=== PATIENT | female | born 1970 | race Caucasian/White ===

== ENCOUNTER → 2017-09-23 | Outpatient (CLI) | payer BC ==
--- NOTE | 2017-09-23 14:04 | US ---
EXAMINATION TYPE: US abdomen complete DATE OF EXAM: 09/23/2017 COMPARISON: NONE CLINICAL HISTORY: R10.32 Abd Pain, Lt side. Pt states ABD pain, more on left near umbilicus EXAM MEASUREMENTS: Liver Length: 12.7 cm Gallbladder Wall: 0.3 cm CBD: 0.5 cm Spleen: 8.8 cm Right Kidney: 9.3 x 4.0 x 4.2 cm Left Kidney: 10.1 x 5.0 x 4.3 cm Pancreas: wnl Liver: Cyst right inferior lobe= 1.0 x 0.4 x 0.8 cm, cyst right anterior lobe= 1.5 x 0.9 x 1.6 cm an d cyst right medial lobe= 1.7 x 1.0 x 1.7 cm Gallbladder: wnl Evidence for sonographic Mccoy's sign: No CBD: wnl Spleen: wnl Right Kidney: wnl, lower pole gassed out Left Kidney: wnl Upper IVC: wnl Abd Aorta: wnl The liver is homogenous. Hepatic cysts as discussed above. The intrahepatic portion of the IVC and pr oximal abdominal aorta are within normal limits. There is no evidence of cholelithiasis. Common sydnee e duct is unremarkable. The visualized portions of the pancreas are homogenous. The spleen is unrem arkable. Kidneys are symmetric and free of hydronephrosis. No renal lesions are seen. IMPRESSION: 1. Hepatic cysts.
== END | disposition home or self-care (01) ==
LOC: RADUSWWP 09:31
PROVIDERS: ATTEND Family Medicine
DX: K76.89 Other specified diseases of liver (principal)
CPT/HCPCS: 76700

== ENCOUNTER → 2017-10-01 | Outpatient (CLI) | payer BC ==
--- NOTE | 2017-10-02 12:04 | MM ---
Reason for exam: screening (asymptomatic). Last mammogram was performed 1 year and 1 month ago. History: Patient is nulliparous. Family history of premenopausal breast cancer in maternal aunt at age 60. Took hormonal contraceptives for 9 years 2 months beginning at age 22. Physical Findings: A clinical breast exam by your physician is recommended on an annual basis and results should be correlated with mammographic findings. MG Screening Mammo w CAD Bilateral CC and MLO view(s) were taken. Prior study comparison: August 31, 2016, bilateral MG screening mammo w CAD. August 03, 2015, bilateral MG screening mammo w CAD. The breast tissue is heterogeneously dense. This may lower the sensitivity of mammography. There is no discrete abnormality. ASSESSMENT: Negative, BI-RAD 1 RECOMMENDATION: Routine screening mammogram of both breasts in 1 year.
== END | disposition home or self-care (01) ==
LOC: RADMAMWWP 16:51
PROVIDERS: ATTEND Obstetrics & Gynecology
DX: Z12.31 Encounter for screening mammogram for malignant neoplasm of breast (principal)

== ENCOUNTER → 2018-09-26 | Outpatient (CLI) | payer BC ==
--- NOTE | 2018-09-30 09:34 | MM ---
Reason for exam: screening (asymptomatic). Last mammogram was performed 1 year ago. History: Patient is nulliparous. Family history of premenopausal breast cancer in maternal aunt at age 60. Took hormonal contraceptives for 9 years 2 months beginning at age 22. Physical Findings: A clinical breast exam by your physician is recommended on an annual basis and results should be correlated with mammographic findings. MG 3D Screening Mammo W/Cad Bilateral CC and MLO view(s) were taken. Prior study comparison: October 01, 2017, bilateral MG screening mammo w CAD. August 31, 2016, bilateral MG screening mammo w CAD. There are scattered fibroglandular densities. No significant changes when compared with prior studies. ASSESSMENT: Negative, BI-RAD 1 RECOMMENDATION: Routine screening mammogram of both breasts in 1 year.
== END | disposition home or self-care (01) ==
LOC: RADMAMWWP 11:21
PROVIDERS: ATTEND Family Medicine
DX: Z12.31 Encounter for screening mammogram for malignant neoplasm of breast (principal)
CPT/HCPCS: 77063; 77067

== ENCOUNTER 2019-09-04 09:05 | Day surgery (SDC) | payer BC ==
[2019-09-02 09:39] VITALS: BMI 21.9
[2019-09-04 09:26] VITALS: TEMP 97
[2019-09-04] MEDS: LACTATED RINGERS 1,000 ML IV SCH ×2 (09:35→09:36)
[2019-09-04] MEDS ORDERED: PROPOFOL 10 MG/ML 20 ML VIAL IV ONE ×2 (09:37→10:21)
--- NOTE | 2019-09-04 09:39 | P.GSHP ---
History of Present Illness H&P Date: 09/04/19 Chief Complaint: Colon cancer screening 49-year-old female here today for colonoscopy. She has not had one previously. No bowel complaints no family history of colon cancer Past Medical History Past Medical History: No Reported History History of Any Multi-Drug Resistant Organisms: None Reported Past Surgical History: Orthopedic Surgery Additional Past Surgical History / Comment(s): sydnee. bunionectomy Past Anesthesia/Blood Transfusion Reactions: No Reported Reaction Smoking Status: Never smoker - Past Family History Mother Family Medical History: No Reported History Medications and Allergies Home Medications Medication Instructions Recorded Confirmed Type Cholecalciferol [Vitamin D3 (25 1,000 unit PO DAILY 09/02/19 09/04/19 History Mcg = 1000 Iu)] Estrogens, Conjugated Cream 1 applicator VAGINAL DAILY 09/02/19 09/04/19 History [Premarin Cream] Loratadine [Claritin] 10 mg PO HS 09/02/19 09/04/19 History Montelukast [Singulair] 10 mg PO HS 09/02/19 09/04/19 History PARoxetine [Paxil] 20 mg PO HS 09/02/19 09/04/19 History Pregnilone Bioidentical 1 tab PO DAILY 09/02/19 09/04/19 History Testosterone 75 gm TD DAILY 09/02/19 09/04/19 History buPROPion HCL [Wellbutrin SR] 450 mg PO HS 09/02/19 09/04/19 History Allergies Allergy/AdvReac Type Severity Reaction Status Date / Time No Known Allergies Allergy Verified 09/02/19 09:15 Surgical - Exam Vital Signs Temp Pulse Resp BP Pulse Ox 97.0 F L 95 18 107/67 97 09/04/19 09:23 09/04/19 09:23 09/04/19 09:23 09/04/19 09:23 09/04/19 09:23 Physical exam: General: Well-developed, well-nourished HEENT: Normocephalic, sclerae nonicteric Abdomen: Nontender, nondistended Extremities: No edema Neuro: Alert and oriented Assessment and Plan (1) Colon cancer screening Narrative/Plan: Will proceed with colonoscopy at this Current Visit: Yes Status: Acute Code(s): Z12.11 - ENCOUNTER FOR SCREENING FOR MALIGNANT NEOPLASM OF COLON SNOMED Code(s): 224194167
--- NOTE | 2019-09-04 09:57 | P.PCN ---
Date of Procedure: 09/04/19 Procedure(s) Performed: PREOPERATIVE DIAGNOSIS: Colon cancer screening POSTOPERATIVE DIAGNOSIS: Poor prep otherwise normal PROCEDURE: Colonoscopy ANESTHESIA: MAC SURGEON: Parmjit Fatima M.D. SPECIMENS: None ENDOSCOPIC PROCEDURE: The patient was placed on the endoscopy table in the left decubitus position. The Olympus colonoscope was inserted into the anus and passed under direct visualization to the base of the cecum. The appendiceal orifice was visualized. From that point the scope was slowly withdrawn inspecting all surfaces carefully. There were no neoplastic inflammatory or polypoid lesions throughout the cecum, ascending, transverse, descending, sigmoid and rectum. Overall the patient's prep was suboptimal with retained liquid and solid stool seen scattered throughout the colon. Approximately 70% of the mucosal surfaces were well visualized. There was no diverticulosis noted. Digital rectal examination was normal. The patient was taken to the recovery room in stable condition per anesthesia guidelines. RECOMMENDATIONS: Normal exam today. Consider shorter-term follow-up or c ologuard testing given the poor prep.
[2019-09-04 10:02] VITALS: PULSE 86; RESP 12
[2019-09-04] MEDS ORDERED: fentaNYL (PF) 50 MCG/ML 2 ML AMP ONE (10:21)
[2019-09-04] MEDS ORDERED: MIDAZOLAM 2 MG/2 ML VIAL ONE (10:21)
[2019-09-04 10:32] VITALS: BP 120/74
== END 2019-09-04 10:36 | disposition home or self-care (01) ==
LOC: ORWHC2ENDO 09:05
PROVIDERS: ATTEND Surgery
DX: Z12.11 Encounter for screening for malignant neoplasm of colon (principal); Z79.899 Other long term (current) drug therapy; Z79.890 Hormone replacement therapy; J45.909 Unspecified asthma, uncomplicated; F39 Unspecified mood [affective] disorder
CPT/HCPCS: J2704; G0121

== ENCOUNTER → 2019-10-17 | Outpatient (CLI) | payer BC ==
--- NOTE | 2019-10-19 10:02 | MM ---
Reason for exam: screening (asymptomatic). Last mammogram was performed 1 year and 1 month ago. History: Patient is postmenopausal and is nulliparous. Family history of premenopausal breast cancer in maternal aunt at age 60. Took hormonal contraceptives for 9 years 2 months beginning at age 22. Physical Findings: A clinical breast exam by your physician is recommended on an annual basis and results should be correlated with mammographic findings. MG 3D Screening Mammo W/Cad Bilateral CC and MLO view(s) were taken. Prior study comparison: September 26, 2018, bilateral MG 3d screening mammo w/cad. October 01, 2017, bilateral MG screening mammo w CAD. The breast tissue is heterogeneously dense. This may lower the sensitivity of mammography. There is no discrete abnormality. No significant changes when compared with prior studies. ASSESSMENT: Negative, BI-RAD 1 RECOMMENDATION: Routine screening mammogram of both breasts in 1 year.
== END ==
LOC: RADMAMWWP 08:30
PROVIDERS: ATTEND Family Medicine
DX: Z12.31 Encounter for screening mammogram for malignant neoplasm of breast (principal)
CPT/HCPCS: 77063; 77067

== ENCOUNTER → 2021-01-13 | Outpatient (CLI) | payer BC ==
--- NOTE | 2021-01-16 11:37 | MM ---
Reason for exam: screening (asymptomatic). Last mammogram was performed 1 year and 3 months ago. History: Patient is postmenopausal and is nulliparous. Family history of premenopausal breast cancer in maternal aunt at age 60. Took hormonal contraceptives for 9 years 2 months beginning at age 22. Taking estrogen for 2 years. Taking progesterone for 2 years. Physical Findings: A clinical breast exam by your physician is recommended on an annual basis and results should be correlated with mammographic findings. MG 3D Screening Mammo W/Cad Bilateral CC and MLO view(s) were taken. Prior study comparison: October 17, 2019, bilateral MG 3d screening mammo w/cad. September 26, 2018, bilateral MG 3d screening mammo w/cad. The breast tissue is heterogeneously dense. This may lower the sensitivity of mammography. No significant changes when compared with prior studies. ASSESSMENT: Negative, BI-RAD 1 RECOMMENDATION: Routine screening mammogram of both breasts in 1 year.
== END | disposition home or self-care (01) ==
LOC: RADMAMWWP 08:58
PROVIDERS: ATTEND Family Medicine
DX: Z12.31 Encounter for screening mammogram for malignant neoplasm of breast (principal)
CPT/HCPCS: 77063; 77067

== ENCOUNTER → 2022-01-19 | Outpatient (CLI) | payer BC ==
--- NOTE | 2022-01-23 14:42 | MM ---
Reason for exam: screening (asymptomatic). Last mammogram was performed 1 year ago. History: Patient is postmenopausal and is nulliparous. Family history of premenopausal breast cancer in maternal aunt at age 60. Took hormonal contraceptives for 9 years 2 months beginning at age 22. Taking estrogen for 4 years beginning at age 47. Taking progesterone for 4 years beginning at age 47. Taking other hormone for 4 years beginning at age 47. Physical Findings: A clinical breast exam by your physician is recommended on an annual basis and results should be correlated with mammographic findings. MG 3D Screening Mammo W/Cad Bilateral CC, MLO, and XCCL view(s) were taken. Prior study comparison: January 13, 2021, bilateral MG 3d screening mammo w/cad. October 17, 2019, bilateral MG 3d screening mammo w/cad. The breast tissue is heterogeneously dense. This may lower the sensitivity of mammography. There is chronic nodularity in the right breast. There is no discrete abnormality. ASSESSMENT: Benign, BI-RAD 2 RECOMMENDATION: Routine screening mammogram of both breasts in 1 year.
== END | disposition home or self-care (01) ==
LOC: RADMAMWWP 08:09
PROVIDERS: ATTEND Obstetrics & Gynecology
DX: Z12.31 Encounter for screening mammogram for malignant neoplasm of breast (principal); Z80.3 Family history of malignant neoplasm of breast; Z78.0 Asymptomatic menopausal state
CPT/HCPCS: 77063; 77067

== ENCOUNTER 2022-05-05 13:16 | Emergency (ER) | payer BC ==
[2022-05-05 13:43] VITALS: TEMP 98.2
--- NOTE | 2022-05-05 14:50 | XR ---
EXAMINATION TYPE: XR lumbar spine 2 or 3V DATE OF EXAM: 05/05/2022 COMPARISON: NONE HISTORY: Trauma. Pain TECHNIQUE: 3 views FINDINGS: Lumbar vertebrae have normal spacing and alignment. Posterior elements are intact. No compr ession fracture. IMPRESSION: Negative lumbar spine exam.
--- NOTE | 2022-05-05 14:51 | XR ---
EXAMINATION TYPE: XR elbow complete LT DATE OF EXAM: 05/05/2022 COMPARISON: NONE HISTORY: Pain. Trauma TECHNIQUE: 3 views FINDINGS: There is no sign of fracture nor dislocation. Joint spaces are normal. No sign of elbow luis alberto nt effusion. IMPRESSION: Normal left elbow exam.
[2022-05-05 15:23] VITALS: RESP 18
--- NOTE | 2022-05-05 16:17 | CT ---
EXAMINATION TYPE: CT brain cspine wo con DATE OF EXAM: 05/05/2022 COMPARISON: None HISTORY: Fall. Head injury. Pain CT DLP: mGycm Automated exposure control for dose reduction was used. Images of the brain and cervical spine obtained with no contrast. Ventricles have normal size. There is no mass effect nor midline shift. No sign of intracranial hemor rhage. Calvarium is intact. There is normal aeration of the mastoids sinuses. The cervical vertebra have normal spacing and alignment. Posterior elements are intact. Facet joints is intact. The skull base is intact.The prevertebral soft tissues appear normal. IMPRESSION: Normal CT scan of the cervical spine. Normal CT scan of the brain.
--- NOTE | 2022-05-05 16:31 | ED ---
Fall HPI - General Chief Complaint: Fall Stated Complaint: slip & fall, hit head Time Seen by Provider: 05/05/22 14:52 Source: patient Mode of arrival: ambulatory - History of Present Illness Initial Comments: 51 year-old female patient presents to ER today for evaluation after slip and fall on concrete. She was carrying a ladder when she fell. States she struck the back of her head, her left elbow, and low back on the ground. States she hit first with her back. She does report some radiating pain down the legs when she moves certain ways. Denies any lower extremity numbness or tingling. Denies loss of bowel or bladder control. Denies any saddle anesthesia. She is able to move her left arm states the pain is mild. States she did have immediate onset of headache, dizziness, and saw stars when she hit her head. She does not believe she lost consciousness. She denies use of blood thinning medication. She denies any other known injury. Denies taking any medication for her symptoms. - Related Data Home Medications Medication Instructions Recorded Confirmed Cholecalciferol [Vitamin D3 (25 1,000 unit PO DAILY 09/02/19 09/04/19 Mcg = 1000 Iu)] Estrogens, Conjugated Cream 1 applicator VAGINAL DAILY 09/02/19 09/04/19 [Premarin Cream] Loratadine [Claritin] 10 mg PO HS 09/02/19 09/04/19 Montelukast [Singulair] 10 mg PO HS 09/02/19 09/04/19 PARoxetine [Paxil] 20 mg PO HS 09/02/19 09/04/19 Pregnilone Bioidentical 1 tab PO DAILY 09/02/19 09/04/19 Testosterone 75 gm TD DAILY 09/02/19 09/04/19 buPROPion HCL [Wellbutrin SR] 450 mg PO HS 09/02/19 09/04/19 Allergies Allergy/AdvReac Type Severity Reaction Status Date / Time No Known Allergies Allergy Verified 05/05/22 13:42 Review of Systems ROS Statement: Those systems with pertinent positive or pertinent negative responses have been documented in the HPI. ROS Other: All systems not noted in ROS Statement are negative. Past Medical History Past Medical History: No Reported History History of Any Multi-Drug Resistant Organisms: None Reported Past Surgical History: Orthopedic Surgery Additional Past Surgical History / Comment(s): sydnee. bunionectomy Past Anesthesia/Blood Transfusion Reactions: No Reported Reaction Past Psychological History: Anxiety, Depression Smoking Status: Never smoker Past Alcohol Use History: Occasional Past Drug Use History: None Reported - Past Family History Mother Family Medical History: No Reported History General Exam Limitations: no limitations General appearance: alert, in no apparent distress, other (This is a well- developed, well-nourished adult female in no acute distress.) Head exam: Present: other (Contusion noted to the left posterior scalp, no abrasion or laceration noted. Tenderness) Eye exam: Present: normal appearance, PERRL, EOMI. Absent: scleral icterus, conjunctival injection, nystagmus, periorbital swelling ENT exam: Present: normal exam, normal oropharynx, mucous membranes moist Neck exam: Present: normal inspection, tenderness (Lower cervical spinal tenderness), full ROM, other (No bony step-off or deformity noted to for midline palpation of posterior cervical spine). Absent: meningismus, lymphadenopathy Respiratory exam: Present: normal lung sounds bilaterally. Absent: respiratory distress, wheezes, rales, rhonchi, stridor Cardiovascular Exam: Present: regular rate, normal rhythm, normal heart sounds. Absent: systolic murmur, diastolic murmur, rubs, gallop, clicks GI/Abdominal exam: Present: soft, normal bowel sounds. Absent: distended, tenderness, guarding, rebound, rigid Extremities exam: Present: normal inspection, full ROM, tenderness (Left posterior elbow), normal capillary refill, other (Full flexion and extension noted to the left elbow. Mild soft tissue swelling noted to the extensor surface. Radial pulses 2+ and equal bilaterally.). Absent: pedal edema, joint swelling, calf tenderness Back exam: Present: tenderness (Left low back), other (No bony step-off or deformity noted to for midline palpation of the thoracic and lumbar spines. There is a large contusion with soft tissue swelling and ecchymosis noted over the left low back.). Absent: normal inspection, vertebral tenderness Neurological exam: Present: alert, oriented X3, CN II-XII intact, normal gait Expanded Patient oriented to: Present: person, place, time Speech: Present: fluid speech Cranial nerves: EOM's Intact: Normal, Nystagmus: Normal Cerebellar function: Finger to Nose: Normal Motor strength exam: RUE: 5, LUE: 5, RLE: 5, LLE: 5 Eye Response: (4) open spontaneously Motor Response: (6) obeys commands Verbal Response: (5) oriented Jennifer Total: 15 Psychiatric exam: Present: normal affect, normal mood Skin exam: Present: warm, dry, intact, normal color. Absent: rash Course Vital Signs 05/05/22 05/05/22 13:39 15:18 Temperature 98.2 F Pulse Rate 69 88 Respiratory 16 18 Rate Blood Pressure 111/67 118/73 O2 Sat by Pulse 98 98 Oximetry Medical Decision Making - Medical Decision Making 51-year-old female patient presents to the emergency department for evaluation after soap and fall on cement. She did strike her head, left elbow, low back. Physical examination did reveal mild soft tissue swelling to the left elbow, full range of motion is intact, neurovascular status is intact. Contusion noted to the left low back. CT brain and C-spine is negative. She is neurologically intact with no focal deficits. Lumbar spine x-ray is negative, left elbow x-r ays negative. I did discuss findings results with her. Symptoms are consistent with concussion. We did discuss signs or symptoms of worsening neurologic status. She is instructed to follow-up with her primary care physician for recheck in 1-2 days. Return parameters were discussed in detail. She verbalizes understanding and agrees with this plan. My attending is Dr. Loomis. - Radiology Data Radiology results: report reviewed, image reviewed 3 views of the left elbow are obtained. Report was reviewed in its entirety. Impression by Dr. San shows normal left elbow exam. 3 views of the lumbar spine are obtained. Report was reviewed in its entirety. Impression by Dr. San shows negative lumbar spine exam. CT brain and C-spine without contrast was obtained. Report was reviewed in its entirety. Impression by Dr. San shows normal computed tomography scan of the cervical spine. Normal computed tomography scan of the brain. Disposition Clinical Impression: Concussion, Contusion of lower back, Left elbow contusion Disposition: HOME SELF-CARE Condition: Good Instructions (If sedation given, give patient instructions): Concussion (ED), Contusion in Adults (ED) Additional Instructions: Apply ice to the painful areas. Tylenol for pain control. Follow-up through primary care physician for recheck in 1-2 days. Return for any new, worsening, or concerning symptoms. Is patient prescribed a controlled substance at d/c from ED?: No Referrals: Maya New MD [Primary Care Provider] - 1-2 days Time of Disposition: 16:31
[2022-05-05 16:50] VITALS: BP 116/76; PULSE 80
== END 2022-05-05 16:50 | disposition home or self-care (01) ==
LOC: EC 13:16
DX: S30.0XXA Contusion of lower back and pelvis, initial encounter (principal); S50.02XA Contusion of left elbow, initial encounter; W19.XXXA Unspecified fall, initial encounter
CPT/HCPCS: 70450; 72100; 72125; 99284

== ENCOUNTER → 2023-01-25 | Outpatient (CLI) | payer BC ==
--- NOTE | 2023-01-28 14:03 | MM ---
Reason for Exam: Screening (asymptomatic). Last screening mammogram was performed 12 month(s) ago. Patient History: Menarche at age 10. Patient has no children. Postmenopausal. Currently using Estrogen, beginning at age 47 for 4 years. Currently using Progesterone, beginning at age 47 for 4 years. Hormonal Contraceptives, starting at age 22 for 9 years, 2 months. Maternal aunt had breast cancer, age 60. Risk Values: Senait 5 year model risk: 1.3%. NCI Lifetime model risk: 9.3%. Prior Study Comparison: 10/17/2019 Bilateral Screening Mammogram, [facility]. 01/13/2021 Bilateral Screening Mammogram, [facility]. 01/19/2022 Bilateral Screening Mammogram, [facility]. Tissue Density: The breast tissue is heterogeneously dense. This may lower the sensitivity of mammography. Findings: Analyzed By CAD. There is no suspicious group of microcalcifications or new suspicious mass in either breast. Overall Assessment: Negative, BI-RAD 1 Management: Screening Mammogram of both breasts in 1 year. A clinical breast exam by your physician is recommended on an annual basis and results should be correlated with mammographic findings. Electronically signed and approved by: Patrice Luna M.D.
== END | disposition home or self-care (01) ==
LOC: RADMAMWWP 09:21
PROVIDERS: ATTEND Obstetrics & Gynecology
DX: Z12.31 Encounter for screening mammogram for malignant neoplasm of breast (principal); Z78.0 Asymptomatic menopausal state; Z80.3 Family history of malignant neoplasm of breast
CPT/HCPCS: 77063; 77067

== ENCOUNTER → 2023-10-19 | Outpatient (CLI) | payer BC ==
--- NOTE | 2023-10-19 11:11 | XR ---
EXAMINATION TYPE: XR knee limited RT DATE OF EXAM: 10/19/2023 11:01 AM CLINICAL INDICATION:Female, 53 years old with history of M25.561 PAIN RT KNEE; [facility] COMPARISON: None. TECHNIQUE: XR knee limited RT; examined in Frontal, lateral and oblique projections. FINDINGS: No evidence of any acute osseous pathology, soft tissue swelling, or joint effusion is no john. Minimal osteophyte formation involving the femoral condyles, tibial plateau and patella. Mild joint space narrowing. A fabella is present. IMPRESSION: 1. No acute osseous pathology. 2. Mild tricompartmental osteoarthritic changes.
== END | disposition home or self-care (01) ==
LOC: RADXRMAIN 10:22
PROVIDERS: ATTEND Family Medicine
DX: M17.11 Unilateral primary osteoarthritis, right knee (principal)

== ENCOUNTER → 2023-11-15 | Outpatient (CLI) | payer BC ==
--- NOTE | 2023-11-15 22:35 | MR ---
EXAMINATION TYPE: MR knee RT wo con DATE OF EXAM: 11/15/2023 COMPARISON: Outside right knee x-ray November 08, 2023 HISTORY: Right knee medial pain since falling and hitting injury. TECHNIQUE: Multiplanar, multisequence images of the knee is performed without IV contrast. FINDINGS: MEDIAL MENISCUS: Anterior and posterior horns are intact without tear. LATERAL MENISCUS: Some increased signal in the lateral meniscus on coronal images does not definitive ly extend to articular surface. It is less well seen on sagittal images. Cannot exclude intrasubstanc e tear. CRUCIATE LIGAMENTS: The anterior and posterior cruciate ligaments are intact and unremarkable. COLLATERAL LIGAMENTS: The medial collateral ligament and lateral collateral ligament complex are inta ct and unremarkable. EXTENSOR MECHANISM: Visualized quadriceps and patellar tendons are intact. EFFUSION: Small size suprapatellar joint effusion. POPLITEAL CYST: No popliteal/odom cyst. TRICOMPARTMENT SPACES: Mild tricompartment joint space loss without significant spurring. CARTILAGE: Tricompartmental articular cartilage is preserved. BONE MARROW SIGNAL: No focal abnormal marrow signal is appreciated. OTHER: No additional significant abnormality is appreciated. IMPRESSION: No full-thickness meniscal or ligamentous tear is seen.
== END | disposition home or self-care (01) ==
LOC: RADMRIMAIN 13:00
PROVIDERS: ATTEND Orthopaedic Surgery
DX: M25.561 Pain in right knee (principal)

== ENCOUNTER 2024-01-29 11:15 | Day surgery (SDC) | payer BC ==
--- NOTE | 2024-01-28 14:02 | HP ---
HISTORY AND PHYSICAL DATE OF SURGERY: 01/29/2024. HISTORY OF PRESENT ILLNESS: Cindy Hoffman is a 53-year-old patient seen with progressive right knee pain. We discussed treatment options. She elected to proceed with right knee arthroscopy. Consent was obtained. PAST MEDICAL HISTORY: Depression. PAST SURGICAL HISTORY: Noncontributory. DAILY MEDICATIONS: 1. Bupropion. 2. Loratadine. 3. Vitamin D. ALLERGIES: None. SOCIAL HISTORY: She denies tobacco use. PHYSICAL EVALUATION OF THE RIGHT KNEE: Range of motion is 0 to 130 degrees. Mild effusion. Tenderness along the medial and lateral joint lines. Positive medial Timothy's. Positive lateral Timothy's. Ligaments stable. Hip rotation without pain. Distal neurovascular exam is intact. IMAGING STUDIES: Radiographs of the right knee revealed mild osteoarthritis. MRI of right knee revealed abnormal signal in lateral meniscus, small effusion. IMPRESSION: Internal derangement of right knee with lateral meniscal tear. PLAN: Right knee arthroscopy with partial lateral meniscectomy and debridement. MMODL / IJN: [id number] /
[~2024-01-29 11:15] MED LIST: HYDROmorphone 0.5 MG/0.5 ML SYRINGE IVP PRN; LACTATED RINGERS 1,000 ML IV SCH; LIDOCAINE 1% (10MG/ML) FOR IV START INTRADERMA PRN; MIDAZOLAM 2 MG/2 ML VIAL IV PRN
[2024-01-29] MEDS: LACTATED RINGERS 1,000 ML IV ONE (11:28)
[2024-01-29] MEDS ORDERED: ONDANSETRON 4 MG/2 ML VIAL ONE (11:31)
[2024-01-29] MEDS: DEXAMETHASONE SOD PHOSPHATE 4 MG/ML 1 ML VIAL IV ONE (11:50)
[2024-01-29] MEDS: ONDANSETRON 4 MG/2 ML VIAL IVP ONE (11:50)
[2024-01-29] MEDS ORDERED: KETOROLAC 15 MG/ML 1 ML VIAL ONE (12:25)
[2024-01-29] MEDS ORDERED: MIDAZOLAM 2 MG/2 ML VIAL ONE (12:25)
[2024-01-29] MEDS ORDERED: PROPOFOL 10 MG/ML 20 ML VIAL IV ONE (12:25)
[2024-01-29] MEDS ORDERED: LIDOCAINE 1% INJ 10MG/ML (20 ML MDV) ONE (12:25)
[2024-01-29] MEDS ORDERED: PHENYLEPHRINE-0.9% NACL SYG 1,000 MCG/10 ML SYRINGE ONE (12:25)
[2024-01-29] MEDS ORDERED: fentaNYL (PF) 50 MCG/ML 2 ML AMP ONE (12:25)
[2024-01-29] MEDS: BUPIVACAINE (PF) 0.25% 30 ML VIAL SQ ONE (12:49)
--- NOTE | 2024-01-29 13:06 | P.OP ---
Date of Procedure: 01/29/24 Preoperative Diagnosis: Internal derangement right knee Postoperative Diagnosis: 1. Tear medial and lateral meniscus right knee 2. Reactive synovitis medial, lateral and suprapatellar compartments right knee Procedure(s) Performed: 1. Arthroscopic partial medial and lateral meniscectomy right knee 2. Arthroscopic partial synovectomy medial, lateral and suprapatellar compartments right knee Anesthesia: GETA, local Surgeon: Serg Chen Estimated Blood Loss (ml): 5 Pathology: none sent Condition: stable Disposition: PACU Indications for Procedure: 53-year-old patient seen with progressive right knee pain. After having treatment options discussed, she elected to proceed with arthroscopy. Operative Findings: See description of procedure Description of Procedure: Patient was taken to the operative suite. Patient underwent a general anesthetic by the department of anesthesia. Patient was given preoperative antibiotics. The right lower extremity was placed in a well-padded arthroscopic leg melvin. The right leg was prepped and draped in the normal sterile orthopedic fashion. A lateral parapatellar and suprapatellar incision was made. Trochars were inserted. Arthroscopy was initiated. Suprapatellar pouch revealed diffuse thick reactive synovitis. The patellofemoral joint appeared to articular congruently. 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 The scope was guided into the medial gutter. No loose bodies or plica were identified. The scope was then guided into the medial compartment. A medial parapatellar incision was made. Trocar inserted followed by probe. There was a radial tear involving the posterior horn of the medial meniscus. There was no significant chondromalacia present. There was some thick reactive synovitis anteriorly. I performed a partial medial meniscectomy getting down to stable meniscal tissue. I performed a partial synovectomy decompressing the thick reactive synovitis. The residual meniscus was probed and was found to be stable. There was good decompression of the synovitis. Scope and probe were then guided into the intercondylar notch. Cruciates were identified, probed and found to be stable. The scope and probe were then guided into lateral compartment. There was a radial tear along the mid body area of the lateral meniscus. There was no significant chondromalacia. There was some thick reactive synovitis anteriorly. I performed a partial lateral meniscectomy getting down to stable meniscal tissue. I performed a partial synovectomy. The residual meniscus was probed and was found to be stable. There was good decompression of the synovitis. The scope was in guided back into the suprapatellar compartment. I introduced a motorized shaver into the suprapatellar compartment. I performed a partial synovectomy. The shaver was removed. There was good decompression of the synovitis. I took 1 more look around the entire knee, no residual debris. Instruments were now removed from the joint. The joint was infiltrated with .25% Marcaine. Steri-Strips were applied to the portal sites. Sterile dressings were applied. The patient was placed into a LINDA hose. No tourniquet was utilized. The patient was awakened, transferred to a bed and taken to recovery stable satisfactory condition.
[2024-01-29 13:25] VITALS: RESP 16; TEMP 97
[2024-01-29 14:01] VITALS: BP 110/70; PULSE 68
== END 2024-01-29 14:13 | disposition home or self-care (01) ==
LOC: OR 11:15
PROVIDERS: ATTEND Orthopaedic Surgery
DX: S83.281A Other tear of lateral meniscus, current injury, right knee, initial encounter (principal); S83.241A Other tear of medial meniscus, current injury, right knee, initial encounter; M65.861 Other synovitis and tenosynovitis, right lower leg; F32.A Depression, unspecified; Z79.899 Other long term (current) drug therapy; X58.XXXA Exposure to other specified factors, initial encounter
CPT/HCPCS: 29880; J2250; J1100; J2405; J0690; J2001; J3010; J1885; J2704; J2371; J0665

== ENCOUNTER → 2024-02-14 | Outpatient (CLI) | payer BC ==
--- NOTE | 2024-02-18 13:23 | MM ---
Reason for Exam: Screening (asymptomatic). Last mammogram was performed 1 year(s) and 1 month(s) ago. Patient History: Menarche at age 10. Patient has no children. Postmenopausal. Currently using Estrogen, beginning at age 47 for 4 years. Currently using Progesterone, beginning at age 47 for 4 years. Hormonal Contraceptives, starting at age 22 for 9 years, 2 months. Maternal aunt had breast cancer, age 60. Risk Values: Senait 5 year model risk: 1.3%. NCI Lifetime model risk: 9.1%. Prior Study Comparison: 10/01/2017 Bilateral Screening Mammogram, [facility]. 09/26/2018 Bilateral Screening Mammogram, [facility]. 10/17/2019 Bilateral Screening Mammogram, [facility]. 01/13/2021 Bilateral Screening Mammogram, [facility]. 01/19/2022 Bilateral Screening Mammogram, [facility]. 01/25/2023 Bilateral MG 3D screening mammo w/cad, [facility]. Tissue Density: There are scattered areas of fibroglandular density. Findings: Analyzed By CAD. Right breast: There is no suspicious group of microcalcifications or new suspicious mass. Left breast: There is no suspicious group of microcalcifications or new suspicious mass. Overall Assessment: Negative, BI-RAD 1 Management: Screening Mammogram of both breasts in [address] [facility] will attempt to contact patient to return for supplemental views and ultrasound if indicated. Patient should continue monthly self-breast exams. A clinical breast exam by your physician is recommended on an annual basis. This exam should not preclude additional follow-up of suspicious palpable abnormalities. Note on Senait scores and lifetime risk: 1. A Senait score greater than 3% is considered moderate risk. If this is the case, consider specialist referral to assess eligibility for a risk reducing agent. 2. If overall lifetime risk for the development of breast cancer is 20% or higher, the patient may qualify for future screening with alternating mammogram and breast MRI. Electronically signed and approved by: Bao Melvin DO
== END | disposition home or self-care (01) ==
LOC: RADMAMWWP 08:52
PROVIDERS: ATTEND Obstetrics & Gynecology
DX: Z12.31 Encounter for screening mammogram for malignant neoplasm of breast (principal); Z80.3 Family history of malignant neoplasm of breast; Z78.0 Asymptomatic menopausal state
CPT/HCPCS: 77063; 77067

== ENCOUNTER → 2025-03-12 | Outpatient (CLI) | payer BC ==
--- NOTE | 2025-03-12 08:51 | MM ---
Reason for Exam: Screening (asymptomatic). Last mammogram was performed 1 year(s) and 1 month(s) ago. Patient History: Menarche at age 10. Patient has no children. Postmenopausal. Currently using Estrogen, beginning at age 47 for 4 years. Currently using Progesterone, beginning at age 47 for 4 years. Hormonal Contraceptives, starting at age 22 for 9 years, 2 months. Maternal aunt had breast cancer, age 60. Risk Values: Senait 5 year model risk: 1.4%. NCI Lifetime model risk: 8.9%. Prior Study Comparison: 01/19/2022 Bilateral Screening Mammogram, [facility]. 01/25/2023 Bilateral MG 3D screening mammo w/cad, [facility]. 02/14/2024 Bilateral MG 3D screening mammo w/cad, [facility]. Tissue Density: There are scattered areas of fibroglandular density. Findings: Analyzed By CAD. Right breast: There is no suspicious group of microcalcifications or new suspicious mass. Left breast: There is no suspicious group of microcalcifications or new suspicious mass. Overall Assessment: Negative, BI-RAD 1 Management: Screening Mammogram of both breasts in [address] [facility] will attempt to contact patient to return for supplemental views and ultrasound if indicated. Patient should continue monthly self-breast exams. A clinical breast exam by your physician is recommended on an annual basis. This exam should not preclude additional follow-up of suspicious palpable abnormalities. Note on Senait scores and lifetime risk: 1. A Senait score greater than 3% is considered moderate risk. If this is the case, consider specialist referral to assess eligibility for a risk reducing agent. 2. If overall lifetime risk for the development of breast cancer is 20% or higher, the patient may qualify for future screening with alternating mammogram and breast MRI. [facility], , 03/12/2025 8:48 AM. Electronically signed and approved by: Bao Melvin DO
== END | disposition home or self-care (01) ==
LOC: RADMAMWWP 08:22
PROVIDERS: ATTEND Obstetrics & Gynecology
DX: Z12.31 Encounter for screening mammogram for malignant neoplasm of breast (principal); R92.323 Mammographic fibroglandular density, bilateral breasts; Z80.3 Family history of malignant neoplasm of breast; Z78.0 Asymptomatic menopausal state; Z79.3 Long term (current) use of hormonal contraceptives
CPT/HCPCS: 77063; 77067